=== PATIENT | female | born 1950 | race Caucasian/White ===

== ENCOUNTER 2018-11-03 08:07 | Outpatient (CLI) | payer MEDICARE, BC ==
[~2018-11-03] VITALS: Ht 170.3 cm; Wt 63.7 kg
[2018-11-03] VITALS (7 sets, daily range): BP systolic 119–146; BP diastolic 61–78; PULSE 76–81; TEMP 97.7–98
[2018-11-03] MEDS ORDERED: FLOVENT DI100 MCG/Ac IH (09:00)
[2018-11-03] MEDS ORDERED: CALCIUM CARBON650 M2 PO (09:06)
[2018-11-03] MEDS ORDERED: MOBIC 7.5MG7.5 MG PO (09:07)
[2018-11-03] MEDS ORDERED: ULTRAM 50MG TAB50 MG PO (09:08)
[2018-11-03] MEDS ORDERED: FLEXERIL 1010 MG/TAB PO (09:09)
[2018-11-03] MEDS ORDERED: VITAMIN D31000 I1 PO (09:11)
[2018-11-03] MEDS ORDERED: MAXITROL OPHTH D5 ML (09:11)
--- NOTE | 2018-11-03 10:19 | NUR ---
ALL MEDICATIONS GIVEN VORB WITH MD. SEE MERGE FOR ALL MEDICATION ADMIN TIMES. SEE MERGE FOR ALL RASS ASSESSMENTS DURING AND POST PROCEDURE.
--- NOTE | 2018-11-03 13:07 | NUR ---
Pt ambulated with stand-by assistanct around EU without difficulty.
== END 2018-11-03 17:06 | disposition home or self-care (01) ==
LOC: COL.CAR 08:07
DX: S22.080A Wedge compression fracture of T11-T12 vertebra, initial encounter for closed fracture (principal); J45.909 Unspecified asthma, uncomplicated; G43.909 Migraine, unspecified, not intractable, without status migrainosus; Z90.49 Acquired absence of other specified parts of digestive tract; M72.2 Plantar fascial fibromatosis; Z88.2 Allergy status to sulfonamides; Z88.5 Allergy status to narcotic agent; Z88.8 Allergy status to other drugs, medicaments and biological substances
CPT/HCPCS: C1713; J2250; J3010